=== PATIENT | male | born 1960 | race Caucasian/White ===

== ENCOUNTER 2018-05-26 06:55 | Day surgery (SDC) | payer OTHER ==
[~2018-05-26] VITALS: Ht 172.7 cm; Wt 88.5 kg
[~2018-05-26 06:55] MED LIST: CRUTCH1 EACH; NORCO 5-325 TA1 EACH PO; OXAPROZIN600 MG PO; SIMVASTATIN40 MG PO
[2018-05-26] MEDS ORDERED: HYDROCODON-ACE1 EA10 PO (08:52)
--- NOTE | 2018-05-26 09:09 | NUR ---
05/26/18 0909 Genoveva Fuentes OXYGEN SATURATION REMAINS 100% ON 10 L VIA MASK. PATIENT LIFTS HEAD OFF PILLOW AND SURGICAL BONNET AND OXYGEN MASK IS REMOVED. PATIENT DENIES PAIN.
--- NOTE | 2018-05-26 09:41 | NUR ---
PATIENT RETURNED FROM SURGERY. LEFT WRIST ELEVATED ON PILLOW. PATIENT DENIES PAIN OR NAUSEA, IS SLEEPY. IN ROOM WITH PATIENT.
--- NOTE | 2018-05-26 10:43 | NUR ---
PATIENT UP TO VOID, DENIES PAIN, NO NAUSEA.
--- NOTE | 2018-05-26 10:47 | NUR ---
PATIENT UP TO VOID, PO INTAKE, PO PAIN MEDICATION GIVEN.
--- NOTE | 2018-05-26 11:30 | NUR ---
PATIENT DISCHARGED TO HOME. PATIENT CONTINUES TO HAVE NO PAIN. PATIENT GIVEN WHEELCHAIR RIDE TO FRONT DOOR, PLACED SELF IN CAR AND SPOUSE IS TRANSPORTING HOME.
--- NOTE | 2018-05-26 14:20 | NUR ---
PT SITTING UP IN BED, PREPPED FOR SURGERY. HE IS ALERT, ORIENTED AND SUPPORTED BY HIS DIRK. BOTH SEEM PREPARED, FEW AUESTIONS. PT PLANS TO HAVE TO HAVE SAME SURGERY ON R ARM LATER THIS YEAR. PT REQUESTED PRAYER, WILL FOLLOW NEEDED
--- NOTE | 2018-05-31 08:32 | OR ---
[facility] [address] [place], [place] [address] Signed DATE OF OPERATION: 05/26/2018 SURGEON: Yoana Martin MD PREOPERATIVE DIAGNOSIS: Carpal tunnel syndrome, left. POSTOPERATIVE DIAGNOSIS: Carpal tunnel syndrome, left. PROCEDURE PERFORMED: Left carpal tunnel release. ANESTHESIA: General with [place] block. STUDENT DEVELOPMENT COORDINATOR: Maggi Caballero PA-C. Maggi was present and critical for positioning, retraction, and wound closure. TOURNIQUET TIME: Approximately 15 minutes. 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 Risks and benefits of operative were discussed with him, and he elected to proceed. DESCRIPTION OF PROCEDURE: Once consent was obtained, he was taken to the operating room. After adequate anesthesia, was placed on operating table. All downside pressure points were well padded. After the [place] block was established, the arm was prepped and draped in a standard sterile fashion. A 1.5 cm incision was then made in the distal wrist crease carried through skin and subcutaneous tissue. The palmaris longus was identified, retracted, and protected. The transverse carpal ligament was identified and dissected free of overlying soft tissue under loupe magnification. It was then released proximally cm and distally to the distal extent. This was palpated using the [place] and found to be completely released. Wound was copiously irrigated with antibiotic solution, closed with 3-0 nylon, and dressed with Bacitracin, Adaptic, 4x4s, and sterile gauze. He tolerated Electronically Signed By: YOANA MARTIN MD 05/31/18 0832 PATIENT NAME: PANCHO MALAVE OPERATIVE REPORT DATE OF : 60 REPORT #: [id number] PHYSICIAN: YOANA MARTIN MD PCP: VALERIE CHISHOLM MD REPORT IS CONFIDENTIAL AND NOT TO BE RELEASED WITHOUT AUTHORIZATION [facility] [address] [facility] [place], [place] [address] Signed procedure well. All sponge, needle, and instrument counts were correct. Yoana Martin MD BA/MODL /[id number] Copies: ~ Electronically Signed By: YOANA MARTIN MD 05/31/18 0832 PATIENT NAME: PANCHO MALAVE OPERATIVE REPORT DATE OF : 60 REPORT #: [id number] PHYSICIAN: YOANA MARTIN MD PCP: VALERIE CHISHOLM MD REPORT IS CONFIDENTIAL AND NOT TO BE RELEASED WITHOUT AUTHORIZATION
== END 2018-05-26 11:25 | disposition home or self-care (01) ==
LOC: OPS 06:55 → DS 06:55 → OPS 08:30 → DS 14:15 → OPS 14:15
PROVIDERS: Specialist
PROC: 01N50ZZ Release Median Nerve, Open Approach (ICD-10-PCS; principal; 2018-05-26 08:30)
DX: G56.02 Carpal tunnel syndrome, left upper limb (principal); G47.33 Obstructive sleep apnea (adult) (pediatric); G89.29 Other chronic pain
CPT/HCPCS: 01810; 36415; 80053; 85025; J0690; J1100; J1885; J2250; J2405; J2704; J2765; J3010; J7120

== ENCOUNTER 2018-06-18 11:09 | Day surgery (SDC) | payer OTHER ==
[~2018-06-18] VITALS: Ht 172.7 cm; Wt 88.5 kg
[~2018-06-18 11:09] MED LIST changes: +HYDROCODON-ACE1 EA10 PO
--- NOTE | 2018-06-18 12:55 | NUR ---
06/18/18 1255 Sheets,Lidia 1246 PT ARRIVED TO PACU, RESP EVEN AND UNLABORED. PT REACTIVE TO TACTILE STIMULI, PT ENCOURAGED TO DEEP BREATHE. HOB INCREASED. 1254 O2 MASK REMOVED, PT REPORTS HAND IS NUMB, PT DENIES NAUSEA AND PAIN.
--- NOTE | 2018-06-18 13:55 | NUR ---
1325: PATIENT BACK FROM DAY SURGERY ROOM FROM PACU. DENIES PAIN. SLIGHTLY DROWSY. RIGHT WRIST DRESSING CDI. C/O NUMBNESS/TINGLING TO RIGHT FINGERS. LEFT HAND IV SITE WNL. SCDs ON. GIVEN ICE WATER AND PUDDING. CALL LIGHT WITHIN REACH. AT BEDSIDE.
--- NOTE | 2018-06-18 16:08 | NUR ---
1410: PATIENT TOLERATED PUDDING AND WATER. DENIES PAIN. 1430: DISCHARGE INSTRUCTIONS GIVEN TO PATIENT AND . IV DC'D WNL. TIP INTACT. DRESSING APPLIED. PATIENT ASSISTED OOB. GAIT STEADY. GETTING DRESSED. 1440: PATIENT DISCHARGED TO HOME WITH VIA WHEELCHAIR.
--- NOTE | 2018-06-20 10:39 | OR ---
[facility] [address] [facility] [place], [place] [address] Signed DATE OF OPERATION: 06/18/2018 SURGEON: Yoana Martin MD PREOPERATIVE DIAGNOSIS: Carpal tunnel right. POSTOPERATIVE DIAGNOSIS: Carpal tunnel right. PROCEDURE PERFORMED: Right carpal tunnel release. ANESTHESIA: Traci block. TWO WAY RADIO TECHNICIAN: None. TOURNIQUET TIME: 15 minutes. BRIEF HISTORY: Be is a 58-year-old male with significant carpal tunnel both hands. He had underwent successful relief from the left and wished to proceed with the release on the right. Risks and benefits were discussed and he elected to proceed. DESCRIPTION OF PROCEDURE: Once consent was obtained, he was taken to the operating room. After adequate anesthesia, he was placed on the operating table. All downside pressure points well padded. The traci block was established and the hand was prepped and draped in a standard sterile fashion. A 1.5 cm incision was made in the distal wrist crease carried through skin and subcutaneous tissue. The palmaris longus was identified, retracted and protected. Under loupe magnification, the transverse carpal ligament was dissected free of overlying soft tissue and released proximally a centimeter and distally to the distal extent of the ligament. This was palpated using a Lutz and found to be completely released. There was no gross tumor noticed to refill. The wound was copiously irrigated with antibiotic solution, closed with 3-0 nylon, dressed with bacitracin, Adaptic, 4x8 gauze. The wound was injected with 5 mL of 0.25% plain Marcaine at the end of procedure. Electronically Signed By: YOANA MARTIN MD 06/20/18 1039 PATIENT NAME: PANCHO MALAVE OPERATIVE REPORT DATE OF : 60 REPORT #: [id number] PHYSICIAN: YOANA MARTIN MD PCP: VALERIE CHISHOLM MD REPORT IS CONFIDENTIAL AND NOT TO BE RELEASED WITHOUT AUTHORIZATION [address] [address] Signed Yoana Martin MD BA/MODL /[id number] Copies: ~ Electronically Signed By: YOANA MARTIN MD 06/20/18 1039 PATIENT NAME: PANCHO MALAVE OPERATIVE REPORT DATE OF : 60 REPORT #: [id number] PHYSICIAN: YOANA MARTIN MD PCP: VALERIE CHISHOLM MD REPORT IS CONFIDENTIAL AND NOT TO BE RELEASED WITHOUT AUTHORIZATION
== END 2018-06-18 14:40 | disposition home or self-care (01) ==
LOC: OPS 11:09 → DS 11:09 → OPS 12:00
PROVIDERS: Specialist
PROC: 01N50ZZ Release Median Nerve, Open Approach (ICD-10-PCS; principal; 2018-06-18 12:00)
DX: G56.01 Carpal tunnel syndrome, right upper limb (principal); G47.30 Sleep apnea, unspecified; M54.9 Dorsalgia, unspecified; M19.90 Unspecified osteoarthritis, unspecified site
CPT/HCPCS: 01810; J0690; J1100; J1885; J2250; J2405; J2704; J2765; J3010; J7120

== ENCOUNTER 2019-10-28 07:27 | Day surgery (SDC) | payer OTHER ==
[~2019-10-28] VITALS: Ht 172.7 cm; Wt 87.1 kg
--- NOTE | 2019-10-28 09:01 | NUR ---
10/28/19 0901 Sharron Jones 0858- PT TO PACU IN LL POSITION. EYES CLOSED. AWAKENS TO VERBAL STIMULI. DENIES PAIN OR NAUSEA. BREATHING EASY AND UNLABORED SP02 >95% ON 2 L O2 VIA NC.
--- NOTE | 2019-10-31 15:48 | PATH ---
[facility] [address] [facility] [place] [address] Signed SPECIMEN(S): A COLON AT 40 CM SPECIMEN(S): B RECTUM SPECIMEN SOURCE: A. COLON AT 40 CM B. RECTUM CLINICAL HISTORY: Pre-op: Screening. Post-op: Diverticulosis. Small ulcerative lesion left colon. MICROSCOPIC DESCRIPTION: Histologic sections of all submitted blocks are examined by light microscopy. These findings, together with the gross examination, support the pathologic diagnosis. FINAL PATHOLOGIC DIAGNOSIS: A. Colon, ulcerative lesion at 40 cm, biopsy: - Fragment of polypoid colonic mucosa with focal active inflammation. - Fragment of colonic mucosa with benign lymphoid aggregate. - Negative for chronic or microscopic colitis. - Negative for dysplasia or malignancy. B. Colon/rectum, biopsy: - Fragments of colorectal mucosa with mild crypt architectural distortion, see Comment. - Negative for dysplasia or malignancy. COMMENT: Sections of the colon/rectal biopsy (B) demonstrate colorectal mucosa with evidence of chronic injury characterized by mild crypt architectural distortion and focal Paneth cell metaplasia. No ulcerations, active inflammation, basal lymphoplasmacytosis, or granulomata are seen. These finding suggest previous episodes of colitis, and could be secondary to diverticular disease-associated colitis. Correlation with clinical findings is recommended. As part of [facility]' Quality Improvement Program, this case was reviewed by another member of our pathology staff. NAL:NRT:cml:C2NR GROSS DESCRIPTION: Two specimens are received in two containers, labeled "FM." A. The specimen, labeled "FM, #1," and designated on the requisition "colon," PATIENT NAME: PANCHO MALAVE PATHOLOGY DATE OF : 60 REPORT #: [id number] PHYSICIAN: STACEY MCDANIELS PCP: VALERIE CHISHOLM MD REPORT IS CONFIDENTIAL AND NOT TO BE RELEASED WITHOUT AUTHORIZATION [facility] [address] [place], [place] [address] Signed is received in formalin and consists of two le soft tissue fragments that measure 0.2 cm in greatest dimension. The specimen is entirely submitted in cassette (A1). B. The specimen, labeled "FM, #2," and designated on the requisition "rectum/colon," is received in formalin and consists of two le soft tissue fragments that measure 0.2 up to 0.3 cm in greatest dimension. The specimen is entirely submitted in cassette (B1). AI (under the direct supervision of a pathologist) The Gross Description was prepared using a voice recognition system. The report was reviewed for accuracy; however, sound-alike word errors, addition and/or deletions may occur. If there is any question about this report, please contact Client Services. PERFORMING LABORATORY: The technical component was performed by [facility] [address] ([place]: Juana Malhotra MD; CLIA# [id number]). [facility] [address] [address] (CLIA# [id number]). Diagnostician: Lucila Chen MD Pathologist Electronically Signed 10/31/2019 Copies: ~ PATIENT NAME: PANCHO MALAVE PATHOLOGY DATE OF : 60 REPORT #: [id number] PHYSICIAN: STACEY PATHOLOGY PCP: VALERIE CHISHOLM MD REPORT IS CONFIDENTIAL AND NOT TO BE RELEASED WITHOUT AUTHORIZATION
--- NOTE | 2019-11-01 11:48 | OR ---
[facility] [address] [place], [place] [address] Signed DATE OF OPERATION: 10/28/2019 SURGEON: Jyoti Washburn MD PREOPERATIVE DIAGNOSIS: Colon screening. POSTOPERATIVE DIAGNOSES: 1. Sigmoid diverticulosis. 2. Ulcerative lesion of left colon at 40 cm. PROCEDURE: Total colonoscopy to cecum with biopsy of ulcerative lesion and biopsy of rectum. ANESTHESIA: Intravenous sedation fentanyl 100 mcg, Versed 5 mg. INDICATION: This 59-year-old white man is a patient of Dr. Carlos and underwent colonoscopy by me in 2009, which was normal. He is asymptomatic at this time. He is here for a screening colonoscopy. He understands the risks of bleeding, infection, and perforation. He has no family history of colon cancer or inflammatory bowel disease. He is symptom free. He is admitted to undergo colonoscopy. He understands the risks of bleeding, infection, and perforation. FINDINGS: The prep was excellent. Complete colonoscopy was undertaken to the cecum without problem. He had numerous diverticula of the sigmoid colon. There was a small ulcerative lesion of the colon at 40 cm, but it was only one with little clinical significance I am sure. Biopsy was obtained of that and the rectum, however. DESCRIPTION OF PROCEDURE: The patient was brought to the endoscopy suite and placed in lateral decubitus position, given intravenous sedation to the point of slurred speech and nystagmus. Digital rectal examination was normal. An Olympus video colonoscope was passed in the rectum and manipulated throughout the colon noting numerous diverticula of the sigmoid and left colon. The scope was ultimately advanced to the cecum without problem. The ileocecal valve and appendiceal orifice were normal. The scope was withdrawn from that point and examination throughout Electronically Signed By: JYOTI WASHBURN MD 11/01/19 1148 PATIENT NAME: PANCHO MALAVE OPERATIVE REPORT DATE OF : 60 REPORT #: [id number] PHYSICIAN: JYOTI WASHBURN MD PCP: VALERIE CARLOS MD REPORT IS CONFIDENTIAL AND NOT TO BE RELEASED WITHOUT AUTHORIZATION [facility] [address] [place], [place] [address] Signed showed no sign of abnormality until approximately 40 cm from the anal verge where a small ulcerative area was noted. This was biopsied. The scope was further withdrawn and numerous diverticuli were seen. Retroflexed view of the rectum was normal. A biopsy was obtained there as well. The scope was removed and the patient taken to the recovery room in good condition. CONCLUSION DIAGNOSIS: Diverticulosis and small ulcerative lesion at 40 cm. PLAN: Recommend a repeat colonoscopy in 10 years. We will review his pathology report. Recommend high-fiber diet. He will return to the ongoing care of Dr. Carlos. MD GAMALIEL Monsivais/BETHL /[id number] cc: Valerie Carlos MD Copies: VALERIE CARLOS MD ~ Electronically Signed By: JYOTI WASHBURN MD 11/01/19 1148 PATIENT NAME: PANCHO MALAVE OPERATIVE REPORT DATE OF : 60 REPORT #: [id number] PHYSICIAN: JYOTI WASHBURN MD PCP: VALERIE CARLOS MD REPORT IS CONFIDENTIAL AND NOT TO BE RELEASED WITHOUT AUTHORIZATION
== END 2019-10-28 09:57 | disposition home or self-care (01) ==
LOC: OPS 07:27 → DS 07:27 → OPS 08:30
PROVIDERS: Surgery
PROC: 0DBE8ZX Excision of Large Intestine, Via Natural or Artificial Opening Endoscopic, Diagnostic (ICD-10-PCS; 2019-10-28)
PROC: 0DBP8ZX Excision of Rectum, Via Natural or Artificial Opening Endoscopic, Diagnostic (ICD-10-PCS; principal; 2019-10-28 08:30)
DX: Z12.11 Encounter for screening for malignant neoplasm of colon (principal); K52.9 Noninfective gastroenteritis and colitis, unspecified; K57.30 Diverticulosis of large intestine without perforation or abscess without bleeding; K21.0 Gastro-esophageal reflux disease with esophagitis; G47.30 Sleep apnea, unspecified; Z79.899 Other long term (current) drug therapy; Z79.82 Long term (current) use of aspirin
CPT/HCPCS: 99153; G0500; J0690; J2250; J3010; J7121

== ENCOUNTER 2022-01-10 06:55 | Day surgery (SDC) | payer OTHER ==
[~2022-01-10] VITALS: Ht 172.7 cm; Wt 93.2 kg
[~2022-01-10 06:55] MED LIST changes: +BAYER CHEWABLE81 MG PO; +FISH OIL 1,0001 EAC5 PO; +MAGNESIUM400 MG PO; +MELOXICAM7.5 MG PO; +OMEPRAZOLE20 MG PO; +SUPER B-COMPL400 MCG PO; +VITAMIN E OIL-V52 M1 TOP
[2022-01-10] MEDS ORDERED: DICLOFENAC SODI75 MG PO (08:57)
[2022-01-10] MEDS ORDERED: HYDROCODON-ACE1 EA10 PO (08:58)
--- NOTE | 2022-01-10 09:37 | NUR ---
01/10/22 0937 Lidia Singh 0862 PT ARRIVED TO PACU ON RA AND AWAKE AND TALKING TO RN. VSS. PLAN OF CARE DISCUSSED. 0905 PT SIPPING SODA PER REQUEST. PT DENIES PAIN AND NAUSEA. 09 PT GETTING DRESSED AND DENIES CONCERNS. SLING IN PLACE AND DC INSTRUCTIONS GIVEN. 0932 PT DC IN WC WITH AND PAPERWORK
--- NOTE | 2022-01-13 06:59 | OR ---
[facility] [address] [place], [place] [address] Signed DATE OF OPERATION: 01/10/2022 SURGEON: Yoana Martin MD PREOPERATIVE DIAGNOSIS: Trigger finger, left index. POSTOPERATIVE DIAGNOSIS: Trigger finger, left index. PROCEDURE PERFORMED: Trigger finger release, left index. SALES FACILITATOR: None. ANESTHESIA: [place] block. TOURNIQUET TIME: 15 minutes. BRIEF HISTORY: Pancho is a 62-year-old gentleman with pain and locking in his index finger. He has had multiple other trigger finger releases. The risks and benefits of operative treatment were discussed with him and he elected to proceed. DESCRIPTION OF PROCEDURE: Once consent was obtained, he was taken to the operating room. After adequate anesthesia, he was placed on the hand table and the arm was prepped and draped in a standard sterile fashion. The A1 mario was identified and approached through a 1 cm incision and the distal palmar crease was carried through the skin and subcutaneous tissue and directly down on the flexor tendon sheath. There was moderate to significant synovitis in that tendon. This was cleared away and under direct loupe magnification, the A1 mario was identified and transected using tenotomy scissors. Initially, we had him flex his finger, it still was triggering. Further release distally was undertaken. He was then able to fully flex and fully extend with no locking. The wound was then copiously irrigated with normal saline, closed with 3-0 nylon and injected with 5 mL of 0.25% Marcaine plain. The wound was dressed with bacitracin, Adaptic, 4 x 8s, and gauze. He Electronically Signed By: YOANA MARTIN MD 01/13/22 0659 PATIENT NAME: PANCHO MALAVE OPERATIVE REPORT DATE OF : 60 REPORT #: [id number] PHYSICIAN: YOANA MARTIN MD PCP: GODWIN TORIBIO PAC REPORT IS CONFIDENTIAL AND NOT TO BE RELEASED WITHOUT AUTHORIZATION [facility] [address] [facility] [place], [place] [address] Signed tolerated the procedure well. All sponge, needle, and instrument counts were correct. Yoana Martin MD BA/MODL /[id number] Copies: ~ Electronically Signed By: YOANA MARTIN MD 01/13/22 0659 PATIENT NAME: PANCHO MALAVE OPERATIVE REPORT DATE OF : 60 REPORT #: [id number] PHYSICIAN: YOANA MARTIN MD PCP: ADDLEMAN,GODWIN K PAC REPORT IS CONFIDENTIAL AND NOT TO BE RELEASED WITHOUT AUTHORIZATION
== END 2022-01-10 09:32 | disposition home or self-care (01) ==
LOC: DS 06:55
PROVIDERS: ATTEND Specialist
PROC: 0LN80ZZ Release Left Hand Tendon, Open Approach (ICD-10-PCS; principal; 2022-01-10 10:00)
DX: M65.322 Trigger finger, left index finger (principal); I10 Essential (primary) hypertension
CPT/HCPCS: J0690; J1885; J2001; J2704; J7121